=== PATIENT | male | born 1990 | race Two or more races ===

== ENCOUNTER 2016-12-14 14:14 | Emergency (ER) | payer SELFPAY ==
[~2016-12-14] VITALS: Ht 172.7 cm; Wt 73.0 kg
[2016-12-14 14:56] VITALS: BP 135/76
== END 2016-12-14 17:35 | disposition left against medical advice (07) ==
LOC: ER 14:14
DX: Z04.3 Encounter for examination and observation following other accident (principal); M79.606 Pain in leg, unspecified; R51 Headache; Z53.21 Procedure and treatment not carried out due to patient leaving prior to being seen by health care provider

== ENCOUNTER 2018-10-16 20:30 | Emergency (ER) | payer BC, MEDICAID ==
[~2018-10-16] VITALS: Ht 172.7 cm; Wt 66.0 kg
[2018-10-16] MEDS ORDERED: BACITRACIN ZINC OINT UDPKT TOP ONE (22:30)
[2018-10-16 22:54] VITALS: BP 120/72
== END 2018-10-16 22:54 | disposition home or self-care (01) ==
LOC: ER 21:50
DX: S50.11XA Contusion of right forearm, initial encounter (principal); S20.311A Abrasion of right front wall of thorax, initial encounter; S60.511A Abrasion of right hand, initial encounter; J45.909 Unspecified asthma, uncomplicated; W45.8XXA Other foreign body or object entering through skin, initial encounter; Y93.89 Activity, other specified; Y92.89 Other specified places as the place of occurrence of the external cause; Y99.8 Other external cause status
CPT/HCPCS: 99283